=== PATIENT | female | born 1990 | race Caucasian/White ===

== ENCOUNTER 2023-02-19 09:55 | Outpatient (OUT) | payer BC, SELFPAY ==
--- NOTE | 2023-02-19 09:57 | US_ITS ---
The [address] [address] Patient Name: BUTCH UNDERWOOD MRN: [id number] date: 1990 Sex: F Assigned Patient Location: Current Patient Location: US Accession/Order Number: [id number] Exam Date: 02/19/2023 10:00 Report Date: 02/19/2023 10:39 At the request of: TALA PARSONS Procedure: US pelvis w/ transvaginal EXAM: [place] ultrasound HISTORY: . Menorrhagia with regular cycle N92.0 . COMPARISON: None. TECHNIQUE: Transabdominal and transvaginal scanning was performed FINDINGS: Scanning of the pelvis demonstrates an anteverted uterus measuring 6.1 x 5.9 x 3.8 cm. Endometrial complex measures 10 mm. Right ovary measures 3.6 x 2.5 x 2.3 cm. Resistive indexes 0.5. There is a 1.7 x 1.3 cm simple cyst in the right ovary. Left ovary measures 1.8 x 2 x 1.8 cm. Color-flow is noted. Resistive indexes 0.7. No fluid is noted in the cul-de-sac. US/US pelvis w/ transvaginal IMPRESSION: 1. Normal-appearing anteverted uterus with a normal endometrial complex. 2. 1.7 x 1.3 cm dominant follicle/simple cyst within the right ovary. 3. Normal-appearing left ovary. Electronically authenticated by: TARIQ PARADA Date: 02/19/2023 10:39
[2023-02-19 10:55] LABS: Basophils Absolute Auto 0.1 10^3/uL (0.0-0.1); Basophils Percent Auto 0.8 % (0.2-2.0); Eosinophils Absolute Auto 0.1 10^3/uL (0.0-0.7); Eosinophils Percent Auto 1.2 % (0.9-7.0); Hematocrit 40.4 % (36.0-48.0); Hemoglobin 13.4 g/dL (12.0-16.0); Immature Granulocytes Abs Auto 0.01 10^3/uL (0.00-0.03); Immature Granulocytes Pct Auto 0.2 % (0.0-0.5); Lymphocytes Absolute Auto 1.8 10^3/uL (1.2-3.8); Mean Corpuscular HGB Conc 33.2 g/dL (29.9-35.2); Mean Corpuscular Hemoglobin 29.5 pg (26.7-34.0); Mean Platelet Volume 10.5 fL (9.5-13.5); Monocytes Absolute Auto 0.7 10^3/uL (0.3-0.8); Neutrophils Absolute Auto 3.4 10^3/uL (1.4-6.5); Neutrophils Percent Auto 56.8 % (43.0-75.0); Platelet Count 282 10^3/uL (150-450); Red Blood Count 4.54 10^6/uL (4.20-5.40); Red Cell Distribution Width 12.8 % (11.0-15.0); White Blood Count 5.9 10^3/uL (4.0-11.0)
[2023-02-19 11:09] LABS: INR 0.96; Prothrombin Time 10.2 sec (9.0-11.6)
[2023-02-19 11:15] LABS: Estimated Average Glucose 97 mg/dL
[2023-02-19 11:36] LABS: HCG Quantitative <1 mIU/mL; Thyroid Stimulating Hormone 1.603 uIU/mL (0.358-3.740)
[2023-02-19 12:03] LABS: Free T4 1.02 ng/dL (0.76-1.46)
== END 2023-02-19 09:56 | disposition home or self-care (01) ==
LOC: US 09:55
PROVIDERS: PCP Family Medicine; Visit Provider Obstetrics & Gynecology
DX: N92.0 Excessive and frequent menstruation with regular cycle (principal)
CPT/HCPCS: 36415; 76830; 76856; 83036; 84439; 84443; 84702; 85025; 85610

== ENCOUNTER 2023-04-22 12:25 | Outpatient (OUT) | payer BC, SELFPAY ==
--- NOTE | 2023-04-22 12:55 | ECG_ITS ---
[facility] Test Date: 2023-04-22 Pat Name: BUTCH UNDERWOOD Department: Room: - Gender: Female [employer]: : 1990 Requested By: Order Number: [id number] Reading MD: ALEXA DUBOIS Measurements Intervals [place] Rate: 74 P: 16 MS: 155 QRS: 67 QRSD: 91 T: 44 QT: 370 QTc: 411 Interpretive Statements SINUS RHYTHM No previous ECG available for comparison Electronically Signed On 04-24-2023 18:18:45 EDT by ALEXA DUBOIS
--- NOTE | 2023-04-22 13:05 | PM.PRESUREVA ---
History of Present Illness History of Present Illness Chief complaint: menorrhagia, AUB, pelvic pain Narrative: Patient presents for preadmission testing. The patient reports heavy painful periods. She denies nausea, vomiting, fever, or any other complaints. Review of Systems ROS Narrative REVIEW OF SYSTEMS: Negative except as stated in HPI, ten or more systems reviewed. Constitutional: No fever , chills, weakness ENT: No sore throat or epistaxis Cardiovascular: No edema, chest pain, palpitations, or activity intolerance Respiratory: No shortness of breath, cough, or wheezing Musculoskeletal: No joint pain or swelling Genitourinary: No dysuria or hematuria Neurological: No numbness, tingling, weakness, or headache Psychiatric: No mood changes PFSH PFS Medical History (Updated 04/22/23 @ 12:49 by Romana Joy NP) Abnormal uterine bleeding ?N93.9 - Abnormal uterine and vaginal bleeding, unspecified (ICD-10) Anemia ?D64.9 - Anemia, unspecified (ICD-10) Bipolar disorder ?F31.9 - Bipolar disorder, unspecified (ICD-10) COVID-19 ?U07.1 - COVID-19 (ICD-10) Kidney stones ?N20.0 - Calculus of kidney (ICD-10) Menorrhagia ?N92.0 - Excessive and frequent menstruation with regular cycle (ICD-10) Pelvic pain ?R10.2 - Pelvic and perineal pain (ICD-10) Postoperative nausea and vomiting ?R11.2 - Nausea with vomiting, unspecified (ICD-10) ?Z98.890 - Other specified postprocedural states (ICD-10) PTSD (post-traumatic stress disorder) ?F43.10 - Post-traumatic stress disorder, unspecified (ICD-10) Seasonal allergies ?J30.2 - Other seasonal allergic rhinitis (ICD-10) Supraventricular tachycardia ?I47.10 - Supraventricular tachycardia, unspecified (ICD-10) Surgical History (Updated 04/22/23 @ 12:49 by Romana Joy NP) History of bilateral salpingectomy ?Z90.79 - Acquired absence of other genital organ(s) (ICD-10) History of dilation and curettage ?Z98.890 - Other specified postprocedural states (ICD-10) History of foot surgery ?Z98.890 - Other specified postprocedural states (ICD-10) Family History (Updated 04/22/23 @ 12:49 by Romana Joy NP) Other Family history of breast cancer Family history of diabetes mellitus Family history of ovarian cancer Family history of skin cancer Family history of stroke Social History (Updated 04/22/23 @ 12:43 by Romana Joy NP) Within the past year, how often did you have a drink containing alcohol: 2-4 times a month Smoking status: Never smoker Non-prescribed substance use: denies use Previous occupational history: [employer] Highest level of school completed/degree received: Master's degree Meds Home Medications and Allergies Home Medications Medication Instructions Recorded Confirmed Type acebutolol 200 mg capsule 200 mg PO BID 04/22/23 04/22/23 History lactobacillus combination no.4 3 3,000 mmu cells PO DAILY 04/22/23 04/22/23 History billion cell capsule (Probiotic) lamotrigine 200 mg tablet 200 mg PO DAILY 04/22/23 04/22/23 History (Lamictal) levocetirizine 5 mg tablet (24HR 5 mg PO DAILY 04/22/23 04/22/23 History Allergy Relief) magnesium oxide 400 mg PO BID 04/22/23 04/22/23 History multivitamin 1 tab PO DAILY 04/22/23 04/22/23 History Allergies Allergy/AdvReac Type Severity Reaction Status Date / Time Penicillins Allergy Anaphylaxis Verified 04/22/23 12:39 Sulfa (Sulfonamide Allergy Hives Verified 04/22/23 12:39 Antibiotics) Exam Narrative Exam Narrative: Constitutional: Awake, alert, comfortable, well-appearing, nontoxic, interactive, vital signs as charted Head: Normocephalic, atraumatic Neck: Supple, normal appearance, normal range of motion, no meningeal signs, no lymphadenopathy Respiratory: No respiratory distress, breath sounds clear Cardiovascular: Regular rate and rhythm, strong and regular heart tones Abdomen: Nontender, normal bowel sounds, soft, no CVA tenderness Musculoskeletal: Normal gait, no swelling or edema Skin: No rashes or induration, no lesions, only visible skin inspected Neuro: No neurological deficits, normal sensation Psychiatric: Oriented ?3, normal affect Assessment and Plan Assessment and Plan (1) Abnormal uterine bleeding: (2) Menorrhagia: (3) Pelvic pain: Plan Endometrial ablation, [place] scheduled with Dr. Guzman 05/06/2023.
== END 2023-04-22 12:26 | disposition home or self-care (01) ==
LOC: PST 12:25
PROVIDERS: PCP Family Medicine; Visit Provider Obstetrics & Gynecology
DX: Z01.810 Encounter for preprocedural cardiovascular examination (principal); N92.0 Excessive and frequent menstruation with regular cycle; N93.9 Abnormal uterine and vaginal bleeding, unspecified; R10.2 Pelvic and perineal pain
CPT/HCPCS: 93005; G0463

== ENCOUNTER 2023-05-06 06:05 | Day surgery (SDC) | payer BC, SELFPAY ==
[2023-04-22 13:03] VITALS: BP 110/66; PULSE 72; RESP 18; TEMP 36.6; O2SAT 98; BMI 46.2
[2023-05-06] VITALS (9 sets, daily range): BP systolic 102–158; BP diastolic 63–82; PULSE 62–80; RESP 14–18; TEMP 37.2; O2SAT 94–97; BMI 45.9
[2023-05-06 06:23] LABS: Basophils Percent Auto 0.5 % (0.2-2.0); Eosinophils Absolute Auto 0.1 10^3/uL (0.0-0.7); Eosinophils Percent Auto 1.1 % (0.9-7.0); Hematocrit 40.7 % (36.0-48.0); Hemoglobin 13.4 g/dL (12.0-16.0); Immature Granulocytes Abs Auto 0.02 10^3/uL (0.00-0.03); Immature Granulocytes Pct Auto 0.2 % (0.0-0.5); Lymphocytes Absolute Auto 3.2 10^3/uL (1.2-3.8); Mean Corpuscular HGB Conc 32.9 g/dL (29.9-35.2); Mean Corpuscular Volume 91.3 fL (81.0-99.0); Mean Platelet Volume 10.1 fL (9.5-13.5); Monocytes Absolute Auto 0.8 10^3/uL (0.3-0.8); Monocytes Percent Auto 9.6 % (1.7-12.0); Neutrophils Absolute Auto 3.9 10^3/uL (1.4-6.5); Neutrophils Percent Auto 48.6 % (43.0-75.0); Platelet Count 301 10^3/uL (150-450); Red Blood Count 4.46 10^6/uL (4.20-5.40); Red Cell Distribution Width 12.6 % (11.0-15.0)
[2023-05-06] MEDS: LACTATED RINGER'S SOLUTION 1,000 ML 50 ML IV (06:39)
[2023-05-06 06:42] LABS: HCG Quantitative <1 mIU/mL
[2023-05-06] MEDS: SCOPOLAMINE 1 MG/3 DAYS TRANSDERM PATCH 1 PATCH TD (07:10)
--- NOTE | 2023-05-06 09:33 | P.ON_ITS ---
Brief Operative Note Date of procedure: 05/06/23 Pre-op diagnosis: menorrhagia Post-op diagnosis: other (irregularly shaped uterus) Procedure: NAME OF PROCEDURE: [ ] [place] endometrial ablation with hysteroscopy. PROCEDURE: The patient was taken back to the OR where she was prepped and draped in the normal sterile fashion after being placed in the dorsal lithotomy position, after being placed under general anesthesia without difficulty.? A weighted speculum was placed into the vagina. The anterior lip was grasped with a single tooth tenaculum. The patient was then sounded to approximated 8cm. The patient?s cervix was gently dilated using hegardilators. The hysteroscope was passed through the cervix into the uterus where both ostia were seen. No gross evidence of polyps, fibroids or malignancy. The cervical length was noted to be 4 cm. The total cavity length is 4cm.? The [place] ablation apparatus was set to approximately 4cm in length. This was placed through the cervix and into the uterus. After the seal was tested, at that time the total ablation of 120 seconds was performed with the [place] withoutdifficulty. All instruments were removed from the vagina. Excellent hemostasis noted.? Sponge and lap count corre ct times 2.? Patient taken to recovery in stable condition. Anesthesia: GETA Surgeon: Usman Guzman Pathology: none sent Condition: stable Disposition: PACU
[2023-05-06] MEDS: PROMETHAZINE HCL 25 MG TABLET PO (10:10)
[2023-05-06] MEDS: HYDROCODONE/ACET 5-325 MG TABLET 1 TAB PO (10:12)
--- NOTE | 2023-05-06 10:13 | PC.NURSE ---
patient is nauseated and has some pain. Patient urinated at [address] meds for both pain and nausea
--- NOTE | 2023-05-06 10:37 | PC.NURSE ---
Patient states she is ok nausea is better wants to rest. before the drive home.
== END 2023-05-06 10:55 | disposition home or self-care (01) ==
PROVIDERS: PCP Family Medicine; Visit Provider Obstetrics & Gynecology
PROC: (CPT 58563; principal; 2023-05-06 07:30)
DX: N92.0 Excessive and frequent menstruation with regular cycle (principal); N93.9 Abnormal uterine and vaginal bleeding, unspecified; R10.2 Pelvic and perineal pain; F31.9 Bipolar disorder, unspecified; Z86.16 Personal history of COVID-19; Z87.442 Personal history of urinary calculi; J30.2 Other seasonal allergic rhinitis; F43.10 Post-traumatic stress disorder, unspecified; F41.1 Generalized anxiety disorder; Z91.51 Personal history of suicidal behavior; E66.01 Morbid (severe) obesity due to excess calories; Z68.41 Body mass index [BMI] 40.0-44.9, adult; N85.8 Other specified noninflammatory disorders of uterus
CPT/HCPCS: 58563; 36415; 84702; 85025; J2704